=== PATIENT | female | born 1935 | race Caucasian/White ===

== ENCOUNTER 2021-11-13 19:04 | Emergency (ER) | payer OTHER ==
[~2021-11-13] VITALS: Ht 167.6 cm; Wt 73.0 kg
[~2021-11-13 19:04] MED LIST: APIX2.5T PO; CYM30 PO; DOXY100C PO; LEVE500T21 PO; LISI20TA30 PO; NEU400 PO; PRO40 PO; ROSU10TA2 PO; SYN50 PO
[2021-11-13 19:13] VITALS: BP_SYST 151
--- NOTE | 2021-11-13 19:23 | NUR ---
PT HERE ACCOMPANIED BY HERE GRAND DAUGHTER C/O HIGB BLOOD PRESSURE AT HOME. PER GRAND DAUGHTER PT BP WAS ON 180'S AT HOME AND SHE TOOK LISINOPRIL AROUND NOON. PT DENIES DIZZINESS, DENIES HEADACHE. PER PT SHE WAS RECENTLY AT [facility] FOR GI BLEED PMH;GI BLEED, AFIB,THYROID,HTN,BREAST CA, LT MASTECTOMY PT AAOX4, NOST IN ANY DISTRESS AT THIS TIME.
[2021-11-13 20:36] VITALS: BP_SYST 166
[2021-11-13] MEDS ORDERED: AMLO2.5T2 PO (20:53)
== END 2021-11-13 21:02 | disposition home or self-care (01) ==
LOC: SED 19:04
DX: I10 Essential (primary) hypertension (principal); R42 Dizziness and giddiness; Z79.899 Other long term (current) drug therapy
CPT/HCPCS: 93005; 99283

== ENCOUNTER 2023-02-04 18:28 | Emergency (ER) | payer OTHER ==
[~2023-02-04] VITALS: Ht 172.7 cm; Wt 63.5 kg
[~2023-02-04 18:28] MED LIST changes: +AMLO2.5T2 PO
[2023-02-04 18:37] VITALS: BP_SYST 144; PULSE 58; RESP 20; TEMP 97.2; O2SAT 94
[2023-02-04] MEDS ORDERED: HYDR-3917 PO (22:03)
[2023-02-04 22:45] VITALS: BP_SYST 152; PULSE 50; RESP 20; O2SAT 97
[2023-02-04] MEDS ORDERED: HYDROcodone/ACETAMIN 5-325 MG TAB (NORCO/ VICODIN) PO ONE (22:45)
== END 2023-02-04 22:45 | disposition home or self-care (01) ==
LOC: SED 18:28
DX: S52.132A Displaced fracture of neck of left radius, initial encounter for closed fracture (principal); S62.395A Other fracture of fourth metacarpal bone, left hand, initial encounter for closed fracture; S62.397A Other fracture of fifth metacarpal bone, left hand, initial encounter for closed fracture; S09.90XA Unspecified injury of head, initial encounter; I10 Essential (primary) hypertension; E03.9 Hypothyroidism, unspecified; Z79.899 Other long term (current) drug therapy; W18.39XA Other fall on same level, initial encounter; Y93.89 Activity, other specified; Y92.89 Other specified places as the place of occurrence of the external cause; Y99.8 Other external cause status
CPT/HCPCS: 70450-TC; 72125-TC; 72170-TC; 76376; 99284